=== PATIENT | male | born 2000 | race Caucasian/White ===

== ENCOUNTER 2020-08-01 19:29 | Emergency (ER) | payer MEDICAID ==
[~2020-08-01] VITALS: Ht 175.3 cm; Wt 109.0 kg
[2020-08-01 19:46] VITALS: BP 142/81
== END 2020-08-01 21:45 | disposition home or self-care (01) ==
LOC: ER 19:29
DX: R07.89 Other chest pain (principal); Z88.8 Allergy status to other drugs, medicaments and biological substances
CPT/HCPCS: 71046; 93005; 99283